=== PATIENT | male | born 1995 | race Caucasian/White ===

== ENCOUNTER → 2020-07-04 | Day surgery (SDC) | payer OTHER ==
[~2020-07-04] VITALS: Ht 170.2 cm; Wt 81.6 kg
[~2020-07-04] MED LIST: HYDROCODONE-AC1 EACH PO; PRILOSEC OTC20 MG PO
== END | disposition home or self-care (01) ==
LOC: OR 08:14
PROVIDERS: Orthopaedic Surgery
PROC: 0PSP04Z Reposition Right Metacarpal with Internal Fixation Device, Open Approach (ICD-10-PCS; principal; 2020-07-04 09:30)
DX: S62.336A Displaced fracture of neck of fifth metacarpal bone, right hand, initial encounter for closed fracture (principal); Z20.822 Contact with and (suspected) exposure to COVID-19; Z88.0 Allergy status to penicillin; Z91.02 Food additives allergy status; Z79.891 Long term (current) use of opiate analgesic; Z79.899 Other long term (current) drug therapy; X83.8XXA Intentional self-harm by other specified means, initial encounter
CPT/HCPCS: 73130; 76000; C1776; J1100; J2001; J2250; J2405; J2704; J3010; J7120